=== PATIENT | male | born 1935 | race Caucasian/White ===

== ENCOUNTER 2021-01-01 22:33 | Emergency (ER) | payer MEDICARE, BC, SELFPAY ==
--- NOTE | ~2021-01-01 | XR_ITS ---
XR shoulder RT min 2V 01/01/2021 23:26 Indication: Right shoulder pain after fall Procedure: 4 views right shoulder Comparison: 02/11/2010 Findings: There is progression of moderate polyarticular osteoarthritis. Osteopenia. No acute fractur es identified. No focal soft tissue abnormality. No foreign bodies. Surrounding osseous structures an d soft tissues are unremarkable. Impression: 1: No acute fracture. Reviewed, dictated and finalized at location A. Impression: 1: No acute fracture.
--- NOTE | ~2021-01-01 | CT_ITS ---
EXAMINATION: CT cervical spine wo con DATE: 01/01/2021 23:43 INDICATION: Neck pain after fall TECHNIQUE: Computed tomography (CT) of the cervical spine was performed without intravenous contrast. The dose-length product was 380 mGy-cm. Automated exposure control and iterative reconstruction tech nique were employed. COMPARISON: None FINDINGS: There are bridging osteophytes at there is severe multilevel degenerative change. No acute fracture or traumatic malalignment. Odontoid process within normal limits. There is multilevel facet arthropathy with neural foraminal narrowing. There is moderate multilevel uncinate degenerative garrett e. Lung apices are normal. There is carotid atherosclerosis. All cervical spine levels. IMPRESSION: 1. No acute fracture. 2: Moderate-severe cervical spondylosis. Reviewed, dictated and finalized at location A.
--- NOTE | ~2021-01-01 | XR_ITS ---
XR chest 1V 01/01/2021 23:27 Indication: Status post fall. Chest pain. Procedure: AP view of the chest Comparison: No prior studies for comparison. Findings: Heart size is normal. There are multiple healed left rib fractures. No focal pneumonia, hetal ma, pleural effusion or pneumothorax. There are moderate degenerative changes of the shoulders. Impression: 1: No acute cardiopulmonary disease. Reviewed, dictated and finalized at location A. Impression: 1: No acute cardiopulmonary disease.
--- NOTE | ~2021-01-01 | CT_ITS ---
EXAMINATION: CT brain wo con DATE: 01/01/2021 23:42 INDICATION: Status post fall. Trauma to the back of the head. TECHNIQUE: Computed tomography (CT) of the head was performed without intravenous contrast. The dose- length product was 681.00 mGy-cm. Automated exposure control and iterative reconstruction technique w ere employed. COMPARISON: None FINDINGS: Generalized atrophy. There are scattered mild periventricular and subcortical white matter changes, most likely related to small vessel ischemic disease (microangiopathy). There is intracrania l atherosclerosis. No ventriculomegaly or midline shift. Basilar cisterns are patent. Paranasal sinus es and mastoids are pneumatized. No depressed skull fractures. IMPRESSION: 1. No acute intracranial abnormality. Reviewed, dictated and finalized at location A.
[2021-01-01 22:29] VITALS: BP 126/84; PULSE 78; RESP 18; TEMP 36.7; O2SAT 100
--- NOTE | 2021-01-01 22:38 | PC.NURSE ---
Attempted to call Concepción leblanc [facility] x2 for medical hx. No answer x2.
--- NOTE | 2021-01-01 22:43 | ECG_ITS ---
Measurements Intervals [place] Rate: 83 P: 15 DC: 188 QRS: 50 QRSD: 154 T: -5 QT: 434 QTc: 512 Interpretive Statements SINUS RHYTHM VENTRICULAR PREMATURE COMPLEX RIGHT BUNDLE BRANCH BLOCK EXTENSIVE ANTERIOR INFARCT, AGE INDETERMINATE BORDERLINE ST-T WAVE ABNORMALITY- INFERIOR LEADS BASELINE ARTIFACT- I, II, III, AVR, AVL, AVF, V1-V6 ABNORMAL ECG Electronically Signed On 01-04-2021 8:31:55 CDT by Ramo Estevez D.O.
--- NOTE | 2021-01-01 23:00 | ED.FALL ---
HPI - Fall General Chief Complaint: Fall Stated Complaint: fall/ hit head Time Seen by Provider: 01/01/21 22:36 Source: patient and RN notes reviewed Mode of arrival: EMS Limitations: dementia History of Present Illness HPI Narrative: This is an 85 year old male with history of dementia who presents for evaluation of a head injury. Nursing reports patient lost his balance and he fell backwards hitting his head on cabinet. He denies LOC or headache. Patient is complaining of right shoulder pain with movement. HE denies chest pain,sob, abdominal pain or neck pain. He is only oriented to self, and it is reported that it is patient's baseline. Related Data Allergies Allergy/AdvReac Type Severity Reaction Status Date / Time No Known Allergies Allergy Mild Verified 01/01/21 22:38 Review of Systems Review of Systems: All systems reviewed & are unremarkable except as noted in HPI and below PMFSH Past Medical History Medical History (Updated 01/02/21 @ 02:50 by Ivy Frye MD) Hyperlipidemia Hypertension Surgical History Surgical History (Updated 01/01/21 @ 23:04 by Ivy Frye MD) Surgical history unknown Social History Social History (Updated 01/01/21 @ 23:04 by Ivy Frye MD) Smoking status: Smoker, status unknown Exam Const: General: no acute distress and alert Eyes: EOM: EOMs intact bilaterally Neck: Neck: normal visual inspection Chest: Chest palpation & inspection: normal inspection of the chest Resp: Effort & Inspection: normal respiratory effort and no retractions Auscultation: clear to auscultation bilaterally Cardio: Rate: regular rate Rhythm: regular rhythm Heart sounds: no murmurs Skin: General skin exam: normal color Rashes: no rashes Neuro: General: moves all extremities and CN's II-XI intact bilaterally Extrem: Other: unable to abduct right arm due to pain in shoulder, bilateral equal compliance spec strength. Course Reevaluation(s) Reevaluation #1: Patient was able to ambulate without difficulty . He is at his baseline so he will be discharged back to facility Date: 01/02/21 Time: 02:45 Vital Signs Vital signs: Vital Signs Temperature 98.1 F 01/01/21 22:29 Pulse Rate 78 01/01/21 22:29 Respiratory Rate 18 01/01/21 22:29 Blood Pressure 126/84 01/01/21 22:29 Pulse Oximetry 100 01/01/21 22:29 Temperature 98.1 F 01/01/21 22:29 Pulse Rate 78 01/02/21 07:22 Respiratory Rate 14 01/02/21 07:22 Blood Pressure 122/91 H 01/02/21 07:22 Pulse Oximetry 99 01/02/21 07:22 MDM - Fall Imaging Data Attestation: I personally reviewed and interpreted this imaging study as follows: My impression: right shoulder- no fracture Chest xray- no pneumothorax Radiologist's impression: CT head Impression: No acute post traumatic intracranial abnormality, no fracture CT c spine Impression: No evidence of fracture or malalignment Multilevel severe degenerative changes. Bilateral carotid artery atherosclerosis Discharge Plan Discharge Clinical Impression: CHI (closed head injury), Contusion of right shoulder Patient Disposition: NH Fdc/Asst Living Condition: Stable Instructions: Antibiotic Form, Fall Prevention for Older Adults (ED), Head Injury (ED) Follow-up/Referrals: [place],Bobbi Hastings MD [Primary Care Provider] -
[2021-01-02 00:03] VITALS: BP 124/94; PULSE 75; RESP 18; O2SAT 94
[2021-01-02 00:28] VITALS: BP 129/65
--- NOTE | 2021-01-02 03:02 | PC.NURSE ---
0150: CALLED [facility] FOR RETURN PATIENT TRANSPORT TO FACILITY ([facility] ETA [id number]
[2021-01-02 03:33] VITALS: BP 125/65; PULSE 78; RESP 18; O2SAT 100
[2021-01-02 06:57] VITALS: BP 121/88; PULSE 78; RESP 18; O2SAT 100
[2021-01-02 07:22] VITALS: BP 122/91; PULSE 78; RESP 14; O2SAT 99
--- NOTE | 2021-01-02 07:40 | PC.NURSE ---
made contact with flynn new [facility]bar [phone]
--- NOTE | 2021-01-02 07:51 | PC.NURSE ---
rina has arrived and is aware that pt is going to [facility] [place]
[2021-01-02 08:08] VITALS: BP 121/64; PULSE 94; RESP 14; O2SAT 98
== END 2021-01-02 08:12 ==
PROVIDERS: Emergency Provider General Practice; PCP Family Medicine
DX: S09.90XA Unspecified injury of head, initial encounter (principal); S40.011A Contusion of right shoulder, initial encounter; F03.90 Unspecified dementia, unspecified severity, without behavioral disturbance, psychotic disturbance, mood disturbance, and anxiety; E78.5 Hyperlipidemia, unspecified; I10 Essential (primary) hypertension; I45.10 Unspecified right bundle-branch block; I49.3 Ventricular premature depolarization; R94.31 Abnormal electrocardiogram [ECG] [EKG]; M47.812 Spondylosis without myelopathy or radiculopathy, cervical region; W01.198A Fall on same level from slipping, tripping and stumbling with subsequent striking against other object, initial encounter
CPT/HCPCS: 70450; 71045; 72125; 73030; 93005; 99284

== ENCOUNTER 2021-01-03 23:45 | Emergency (ER) | payer MEDICARE, BC, SELFPAY ==
--- NOTE | ~2021-01-03 | CT_ITS ---
EXAMINATION: CT brain wo con INDICATION: Head injury COMPARISON: 01/01/2021 TECHNIQUE: Standard unenhanced head CT. The dose-length product (DLP) was 681.00 mGy-cm. The mA was a djusted according to patient size. Iterative reconstruction technique was employed. FINDINGS: There is no acute intraparenchymal hemorrhage. No evidence of mass lesion. No evidence of a cute infarction. There is moderate periventricular and subcortical hypodensity probably related to sm all vessel ischemic disease. There is moderate prominence of the sulci and ventricles related to cere bral atrophy. Intracranial calcified cerebral atherosclerosis is noted. There are no extra-axial irsi ections. There is no mass effect or midline shift. Changes in the globes are likely from ocular lens surgery. There is mild mucosal thickening of the paranasal sinuses. IMPRESSION: 1. No acute intracranial abnormality. 2. Age related findings. Reviewed, dictated and finalized at location A.
--- NOTE | ~2021-01-03 | XR_ITS ---
XR hip LT 2V w AP pelvis 01/04/2021 00:07 Indication: Left hip pain after fall Procedure: AP pelvis and 2 views left hip Comparison: No prior studies for comparison. 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 Extensive vascular calcifications are present. Pelvic rings are intact. No acute fracture or chip medic malalignment. No significant so ft tissue abnormality. Impression: 1: No acute fracture. Reviewed, dictated and finalized at location A. Impression: 1: No acute fracture.
[2021-01-03 23:29] VITALS: BP 125/68; PULSE 85; RESP 21; TEMP 36; O2SAT 96
[2021-01-04] VITALS (7 sets, daily range): BP systolic 112–152; BP diastolic 58–86; PULSE 81–93; RESP 15–22; O2SAT 98–100
--- NOTE | 2021-01-04 00:02 | ED.FALL ---
HPI - Fall General Chief Complaint: Fall Stated Complaint: GLF LEFT HIP PAIN Time Seen by Provider: 01/03/21 23:46 History of Present Illness HPI Narrative: 85 yo male w/ h/o dementia brought in by EMS after an unwitnessed fall. Unknown if he hit his head. he was reportedly comlaining of left hip pain. He denies any pain at this time. History limited by dementia Related Data Allergies Allergy/AdvReac Type Severity Reaction Status Date / Time No Known Allergies Allergy Mild Verified 01/01/21 22:38 Review of Systems Review of Systems: ROS unobtainable: Yes unobtainable due to mental status ENT: Denies dizziness Cardiovascular: Cardiovascular: Denies chest pain Respiratory: Respiratory: Denies dyspnea PMFSH Past Medical History Medical History Hyperlipidemia Hypertension Surgical History Surgical History Surgical history unknown Social History Social History Smoking status: Smoker, status unknown Alcohol intake: unknown Substance use: unknown Living arrangements: prison Gender identity (if verbalized by the patient): Male Exam Const: General: no acute distress and alert Nutritional Appearance: well nourished HENMT: Head: normal to inspection Resp: Effort & Inspection: normal respiratory effort Auscultation: clear to auscultation bilaterally Cardio: Rate: regular rate Rhythm: regular rhythm GI: GI Palp: Yes Soft to palpation and No Tenderness to palpation present (GI) Back/Spine/Pelvis: Cervical Spine: No Cervical spine tenderness Thoracic/Lumbar Spine: No thoracic spinal tenderness and No lumbar spinal tenderness Skin: General skin exam: normal color Neuro: General: moves all extremities and no focal motor deficits Speech: normal speech Extrem: General: normal to inspection Course Vital Signs Vital signs: Vital Signs Temperature 36.0 C L 01/03/21 23:29 Pulse Rate 85 01/03/21 23:29 Respiratory Rate 21 H 01/03/21 23:29 Blood Pressure 125/68 01/03/21 23:29 Pulse Oximetry 96 01/03/21 23:29 Temperature 36.0 C L 01/03/21 23:29 Pulse Rate 88 01/04/21 09:42 Respiratory Rate 16 01/04/21 09:42 Blood Pressure 115/77 01/04/21 09:42 Pulse Oximetry 100 01/04/21 09:42 MDM - Fall Medical Records Attestation: I reviewed the patient's medical records. Imaging Data Radiologist's impression: ITS Impressions Head CT 01/03/21 23:59 IMPRESSION: 1. No acute intracranial abnormality. 2. Age related findings. Hip/Pelvis X-Ray 01/04/21 07:13 Impression: 1: No acute fracture. Discharge Plan Discharge Clinical Impression: Fall from ground level, Musculoskeletal pain Patient Disposition: [facility] Long-Term/Asst Living Condition: Stable Instructions: Fall Prevention (ED) Additional Instructions: You may take Tylenol or ibuprofen for pain. Ice may be used for comfort. Follow-up with your PCP in 3 to 5 days as needed. Follow-up/Referrals: [place],Bobbi Hastings MD [Primary Care Provider] - Time of Disposition: 01:40
--- NOTE | 2021-01-04 01:30 | PC.NURSE ---
Updated [facility] [place] via phone. Requests updates at [phone].
--- NOTE | 2021-01-04 01:32 | ED.FALL ---
HPI - Fall General Chief Complaint: Fall Stated Complaint: GLF LEFT HIP PAIN Time Seen by Provider: 01/03/21 23:46 Source: patient Mode of arrival: EMS Limitations: dementia History of Present Illness HPI Narrative: Patient is an 85-year-old male who presents from memory care after unwitnessed fall. Patient reports left hip pain, EMS reported tender with palpation. Patient is alert and oriented x1 which is baseline per patient. No visible injuries or deformities noted. No shortening or rotation of hip. Patient resting quietly and comfortably at this time. Related Data Allergies Allergy/AdvReac Type Severity Reaction Status Date / Time No Known Allergies Allergy Mild Verified 01/01/21 22:38 Review of Systems Review of Systems: Narrative: CONSTITUTIONAL: Denies fever, chills, or sweats. EYES: Denies visual changes, redness, or discharge. ENT: Denies rhinorrhea, congestion, sore throat, or otalgia. CARDIOVASCULAR: Denies chest pain, palpitations, or edema. RESPIRATORY: Denies cough or dyspnea. GASTROINTESTINAL: Denies abdominal pain, nausea, vomiting, or diarrhea. GENITOURINARY: Denies dysuria or hematuria. SKIN: Denies rash or itching. MUSCULOSKELETAL: Denies back pain, reports left hip pain NEUROLOGIC: Denies headache, numbness, dizziness, or weakness. PSYCHIATRIC: Denies anxiety or depression. PMFSH Past Medical History Medical History Hyperlipidemia Hypertension Surgical History Surgical History Surgical history unknown Social History Social History (Updated 01/04/21 @ 01:35 by SHAHIDA Galvez) Smoking status: Smoker, status unknown Alcohol intake: unknown Substance use: unknown Living arrangements: half-way Gender identity (if verbalized by the patient): Male Comments At the time of signature, I have reviewed and agree with nursing past medical, surgical, social, and family history unless otherwise noted. Please see nursing chart for further information. There is no relevant family history pertinent to the presenting complaint. Exam Narrative: Exam Narrative: GENERAL: Well-appearing, well-nourished, and in no acute distress. HEAD: Normocephalic, atraumatic. EYES: EOMI. No redness or drainage. Conjunctiva are normal. ENT: Mucous membranes pink and moist. Nares clear. No rhinorrhea. TMs normal bilaterally. Throat normal. Uvula midline. NECK: AROM. Supple. No lymphadenopathy. CHEST: No respiratory distress. HEART: Regular rate and rhythm. GI: Soft, nontender without rebound, or guarding. No distention. Bowel sounds normal in all quadrants. MUSCULOSKELETAL: No bony tenderness. EXTREMITIES: Normal range of motion. No edema. No shortening or rotation noted in bilateral hips, no tenderness with palpation SKIN: Warm, dry, no rash. NEURO: No focal deficits. Alert and oriented x3. Gait steady. PSYCH: Normal affect. No signs of depression or anxiety. Course Vital Signs Vital signs: Vital Signs Temperature 36.0 C L 01/03/21 23:29 Pulse Rate 85 01/03/21 23:29 Respiratory Rate 21 H 01/03/21 23:29 Blood Pressure 125/68 01/03/21 23:29 Pulse Oximetry 96 01/03/21 23:29 Temperature 36.0 C L 01/03/21 23:29 Pulse Rate 90 01/04/21 01:26 Respiratory Rate 21 H 01/04/21 01:26 Blood Pressure 152/81 H 01/04/21 01:26 Pulse Oximetry 99 01/04/21 01:26 Reviewed. Patient has been instructed to follow-up with his PCP regarding his blood pressure. MDM - Fall MDM Narrative Medical decision making narrative: Patient's CT shows no acute injury. Patient's xray of pelvis and hip shows no acute fracture or dislocation. Patient is sleeping comfortably at this time, no needs verbalized. Patient is stable for discharge to home with outpatient follow up as needed. Differential Diagnosis Differential diagnosis: Likely other (Sprain, strain, contusion, fracture)
--- NOTE | 2021-01-04 01:44 | PC.NURSE ---
[facility] [place], notified of pt discharge status. Patria states pt will have to go back to memory care facility by ambulance.
--- NOTE | 2021-01-04 02:15 | PC.NURSE ---
Memory care facility called at this time, no answer. Will call again later.
--- NOTE | 2021-01-04 02:17 | PC.NURSE ---
made contact with flynn to transfer pt back to [phone]
--- NOTE | 2021-01-04 02:34 | PC.NURSE ---
Report given to Bozena varela [place] of [facility] in [place]. No questions at this time. Pt to return to facility via BLS.
--- NOTE | 2021-01-04 05:33 | PC.NURSE ---
flynn called with an updated eta [phone]
== END 2021-01-04 09:42 ==
PROVIDERS: Emergency Provider Nurse Practitioner; PCP Family Medicine
DX: M25.552 Pain in left hip (principal); E78.5 Hyperlipidemia, unspecified; I10 Essential (primary) hypertension; W18.30XA Fall on same level, unspecified, initial encounter
CPT/HCPCS: 70450; 73502; 99284

== ENCOUNTER 2021-01-18 11:34 | Observation (INO) | payer MEDICARE, BC, SELFPAY ==
[2021-01-18] VITALS (7 sets, daily range): BP systolic 106–139; BP diastolic 58–99; PULSE 75–97; RESP 18–25; TEMP 36.4–36.8; O2SAT 91–98; BMI 23.6
--- NOTE | ~2021-01-18 | XR_ITS ---
EXAMINATION: XR chest 1V portable DATE: 01/18/2021 12:11 INDICATION: Altered mental status. TECHNIQUE: A single frontal view of the chest was obtained. COMPARISON: Chest single view 01/01/2021 FINDINGS: The lung volumes are normal. There is a diffuse interstitial pattern in the lungs. No pleur al effusion or pneumothorax. The heart size is normal. There is an electronic device overlying left c hest wall. There are multiple old healed bilateral rib fractures. IMPRESSION: 1. Stable diffuse interstitial pattern in the lungs, consistent with mild pulmonary edema and/or legal advisor gal lung disease. Reviewed, dictated and finalized at location A. IMPRESSION: 1. Stable diffuse interstitial pattern in the lungs, consistent with mild pulmo nary edema and/or chronic lung disease.
--- NOTE | ~2021-01-18 | CT_ITS ---
EXAMINATION: CT brain wo con INDICATION: Altered mental status and weakness COMPARISON: None TECHNIQUE: Standard unenhanced head CT. The dose-length product (DLP) was 681.00 mGy-cm. The mA was a djusted according to patient size. Iterative reconstruction technique was employed. FINDINGS: There is no acute intraparenchymal hemorrhage. No evidence of mass lesion. No evidence of a cute infarction. There is mild periventricular and subcortical hypodensity probably related to small vessel ischemic disease. There is mild prominence of the sulci and ventricles related to cerebral atr ophy. Intracranial calcified cerebral atherosclerosis is noted. There are no extra-axial collections. There is no mass effect or midline shift. Changes in the globes are likely from ocular lens surgery. The visualized sinuses and mastoid air cells are well aerated. IMPRESSION: 1. No acute intracranial abnormality. 2. Age related findings. Reviewed, dictated and finalized at location B.
--- NOTE | 2021-01-18 11:45 | ECG_ITS ---
Measurements Intervals [place] Rate: 83 P: 58 [place]: 183 QRS: 21 QRSD: 142 T: -2 QT: 433 QTc: 510 Interpretive Statements SINUS RHYTHM POSSIBLE LEFT ATRIAL ENLARGEMENT RIGHT BUNDLE BRANCH BLOCK ANTEROLATERAL INFARCT, AGE INDETERMINATE INFERIOR INFARCT, AGE INDETERMINATE BASELINE ARTIFACT- I, II, III, AVR, AVL, AVF, V1-V6 ABNORMAL ECG Electronically Signed On 01-18-2021 15:31:59 CDT by Ramo Estevez D.O.
--- NOTE | 2021-01-18 11:45 | ED.WEAKNESS ---
HPI - Weakness General Chief complaint: Weakness Stated complaint: WEAKNESS Time Seen by Provider: 01/18/21 11:37 Source: RN notes reviewed History of Present Illness HPI Narrative: Patient presents to emergency department from [facility] for altered mental status. History is per staff at the facility and EMS as patient is unable to give history patient with a history of Alzheimer's dementia and is ANO x1 at baseline over the past 2 weeks he has had progressive decline with being less alert and not eating and drinking. Patient currently lays in bed with eyes closed does not follow any commands he was able to say random words Related Data Allergies Allergy/AdvReac Type Severity Reaction Status Date / Time No Known Allergies Allergy Mild Verified 01/01/21 22:38 Review of Systems Review of Systems: ROS unobtainable: Yes unobtainable due to mental status PMFSH Past Medical History Medical History Dementia Hyperlipidemia Hypertension Surgical History Surgical History Surgical history unknown Social History Social History Smoking status: Smoker, status unknown Alcohol intake: unknown Substance use: unknown Gender identity (if verbalized by the patient): Male Exam Narrative: APPEARANCE: Laying in bed with eyes closed forcibly shutting eyes with sternal rub will say ouch and grabbed my hand EYES: PERRL HEENT: Normocephalic, atraumatic, oral mucosa dry RESPIRATORY: No respiratory distress Clear to auscultation bilaterally with no rhonchi wheezing or rales. CARDIOVASCULAR: Regular rate and rhythm without murmurs rubs or gallops. ABDOMINAL: Soft, nontender, nondistended, no rebound or guarding MUSCULOSKELETAl: Moves all extremities. No clubbing, cyanosis or edema. NEURO: Laying in bed with eyes closed forcibly trying to close eyes does not answer any questions or follow commands SKIN:: Warm, dry. No rashes lesions or abrasions Course Course Emergency Course: Called discussed with patient's daughter Patria who is power of immigration attorney discussed the patient's progressive decline at this time she is in agreement with the patient having a hospice consult discussed with patient return to the facility Called and discussed with Dr. Zambrano presentation work-up agrees with plan for hospice Discussed with case management who came to evaluate the patient discussed with the daughter the also discussed with the patient's current ECF they are unable to care for the patient this time as he is requiring a higher level of need at this time unable to place patient in a different assisted this evening and will admit to the hospital service Discussed with IRIS Landin for Dr Villa presentation work-up agrees with admission at this time Vital Signs Vital signs: Vital Signs Temperature 98.3 F 01/18/21 11:39 Pulse Rate 81 01/18/21 11:39 Respiratory Rate 22 H 01/18/21 11:39 Blood Pressure 125/65 01/18/21 11:39 Pulse Oximetry 92 01/18/21 11:39 Temperature 98.3 F 01/18/21 11:39 Pulse Rate 92 01/18/21 14:52 Respiratory Rate 25 H 01/18/21 14:52 Blood Pressure 130/99 H 01/18/21 14:52 Pulse Oximetry 98 01/18/21 14:52 MDM - Weakness Lab Data Result diagrams: 01/18/21 11:52 01/18/21 11:52 Labs: Lab Results 01/18/21 01/18/21 01/18/21 Range/Units 11:52 11:52 11:52 WBC 8.8 (4.5-10.0) K/mm3 RBC 4.65 (4.6-6.20) M/mm3 Hgb 14.8 (14.0-18.0) g/dL Hct 43.2 (42.0-52.0) % MCV 92.9 (80-100) fl MCH 31.8 (26-34) pg MCHC 34.3 (32-36) g/dl RDW 13.9 (11.5-14.5) % Plt Count 259 (150-375) k/mm3 MPV 10.1 (7.4-10.4) fl Immature Gran % (Auto) 0.2 (0-0.5) % Neut % (Auto) 65.2 (45.5-73.1) % Lymph % (Auto) 24.6 (18.3-44.2) % [place] % (Auto) 7.1 (2.6-8.5) % Eos % (Au
[2021-01-18] MEDS: SODIUM CHLORIDE 0.9% IV 1,000 ML 999 ML IV CONT (12:11)
[2021-01-18 12:19] LABS: Basophils Absolute Auto 0.1 K/mm3 (0.0-0.1); Basophils Percent Auto 0.7 % (0.2-1.2); Eosinophils Absolute Auto 0.2 K/mm3 (0-0.3); Eosinophils Percent Auto 2.2 % (0-4.4); Hematocrit 43.2 % (42.0-52.0); Hemoglobin 14.8 g/dL (14.0-18.0); Immature Granulocyte Absolute 0.02 K/mm3 (0.00-0.031); Immature Granulocyte Percent A 0.2 % (0-0.5); Lymphocytes Absolute Auto 2.16 K/mm3 (0.9-3.2); Lymphocytes Percent Auto 24.6 % (18.3-44.2); Mean Corpuscular HGB Conc 34.3 g/dl (32-36); Mean Corpuscular Hemoglobin 31.8 pg (26-34); Mean Corpuscular Volume 92.9 fl (80-100); Mean Platelet Volume 10.1 fl (7.4-10.4); Monocytes Absolute Auto 0.6 K/mm3 (0.1-0.6); Monocytes Percent Auto 7.1 % (2.6-8.5); Neutrophils Absolute Auto 5.7 K/mm3 (1.3-6.7); Neutrophils Percent Auto 65.2 % (45.5-73.1); Platelet Count Result 259 k/mm3 (150-375); Red Blood Count 4.65 M/mm3 (4.6-6.20); Red Cell Distribution Width 13.9 % (11.5-14.5); White Blood Count 8.8 K/mm3 (4.5-10.0)
[2021-01-18 12:30] LABS: Add Urine Microscopic? YES; Appearance Urine Cloudy (Clear); Bilirubin Urine Negative (Negative); Color Urine Amber (Yellow); Glucose Urine UA Negative (Negative); Hyaline Casts Urine 30-49 /lpf; Ketones Urine Negative (Negative); Leukocyte Esterase Ur Negative LEU/UL (Negative); Mucus Urine Heavy /lpf; Nitrate Urine Negative (Negative); Protein Urine 2+ mg/dL (Negative); RBC Urine 21-50 /hpf (0-2); Specific Grav Ur 1.029 (1.001-1.035); WBC Urine 31-50 /hpf
[2021-01-18 12:32] LABS: Blood Urine Negative (Negative)
[2021-01-18 12:34] LABS: INR 1.1; Prothrombin Time 14.1 Seconds (11.1-14.7)
[2021-01-18 12:35] LABS: Partial Thromboplastin Time 37.9 SECONDS (22.3-36.8)
[2021-01-18 12:38] LABS: Alanine Aminotransferase 25 U/L (4-50); Albumin Level 4.3 g/dL (3.5-5.1); Alkaline Phosphatase 182 U/L (38-126); Anion Gap 11 mmol/L (8-16); Aspartate Amino Transferase 35 U/L (17-59); Bilirubin,Total 1.5 mg/dL (0.2-1.3); Blood Urea Nitrogen 15 mg/dL (9-20); Calcium 9.6 mg/dL (8.4-10.2); Carbon Dioxide 24 mmol/L (22-30); Chloride 102 mmol/L (98-107); Estimated CRCL calculation 87 ml/min; Estimated Glomerular Filt Rate > 60; Glucose 128 mg/dL (65-110); Potassium 3.9 mmol/L (3.4-5.0); Sodium 137 mmol/L (137-145)
--- NOTE | 2021-01-18 15:18 | PCCCNOTE ---
Hospice referral order per Dr. Muñoz. I spoke with daughter and all in agreement that Hospice is needed. [facility] contacted and referral made and information sent. Daughter is currently in [place] and is flying up [facility]. Pt currently lives at [facility]. The memory care facility states that they are not set up for heavy care needs of patient.
--- NOTE | 2021-01-18 17:38 | PCCCNOTE ---
[facility] to meet with daughter (Patria) at 1100 AM Thur to sign papers and go over plan of care.
--- NOTE | 2021-01-18 18:08 | ADMGEN ---
This patient, Nirmal Ayoub, was admitted to Medical Room 340-01. Patient/family oriented to hospital policies and general routines including ID bracelet, bed and alarms, visiting hours, pain management, procedures, bathroom and other care routines, personal items, smoking policy, room service/diet, and visiting hours. Information on how to activate the Rapid Response Team has been discussed. Patient/Family are encouraged to report perceived risks to care and to ask questions if they do not understand what they are told or what they should do.
--- NOTE | 2021-01-18 18:34 | PC.NURSE ---
Attempted to call [facility] to obtain patients medication list twice, [phone]. Left voicemails for staff to fax medication list.
--- NOTE | 2021-01-18 23:00 | PM.IMHP ---
H&P: HPI History of Present Illness Date/Time: 01/18/21 23:00 Chief Complaint: Weakness and weight loss. Narrative: This is an 85-year-old male with dementia who presented to the emergency department earlier today via EMS from the [facility] for evaluation of weakness and weight loss. He is not able to provide me with any meaningful history given his severe dementia and current clinical condition. As such a majority of the following is obtained via a review of his electronic medical records. I was told that his daughter was traveling up here from out of town and was unable to get a hold of her. According to the triage note he been refusing his meals and eating very little over in the past couple of weeks. It is my understanding that he has gotten progressively less interactive and weak as well. There were no significant findings noted on labs or imaging done on arrival to the emergency department. At the time of my evaluation he is lying in bed with his eyes closed and he would not open his eyes. He could not answer my questions but on occasion would monitor a few words that I could not understand. He did not allow me to fully examine him as it caused agitation. Calls to the [facility] have been on answered as of yet. Review of Systems Review of Systems: Unable to obtain given current clinical condition. [facility] Past Medical History Medical History (Updated 01/18/21 @ 21:18 by Urvashi Omer PA-C) Benign prostatic hyperplasia Dementia Diet-controlled diabetes mellitus Gastroesophageal reflux disease Hyperlipidemia Hypertension Macular degeneration Surgical History Surgical History Surgical history unknown Family History Family History (Updated 01/19/21 @ 00:45 by Urvashi Omer PA-C) Other Family history unknown Social History Social History (Updated 01/19/21 @ 00:47 by Urvashi Omer PA-C) Social History: The patient lives at the [facility]. Patient is unable to tell me if he has a history of alcohol or tobacco use. A Patria Montez is listed on his paperwork though it does not state how she is related to the patient if at all. Meds Home Medications and Allergies Home Medications Medication Instructions Recorded Confirmed Type dronabinol 2.5 mg PO BID 01/18/21 01/18/21 History Allergies Allergy/AdvReac Type Severity Reaction Status Date / Time No Known Allergies Allergy Mild Verified 01/18/21 18:32 Vital Signs Vital Signs - 24 hr 01/18/21 11:39 01/18/21 11:42 01/18/21 13:21 Temperature 98.3 F Pulse Rate 81 78 95 Respiratory Rate 22 H 18 Blood Pressure 125/65 121/58 L Pulse Oximetry 92 98 01/18/21 14:52 01/18/21 17:19 01/18/21 18:28 Temperature 97.6 F Pulse Rate 92 75 79 Respiratory Rate 25 H 25 H 18 Blood Pressure 130/99 H 106/71 117/98 H Pulse Oximetry 98 97 91 Exam Narrative: General: Frail elderly male supine in bed. Weight: 79 kg. BMI: 23.6. HEENT: He kept his eyes closed and would not open them. Conjunctiva mildly injected. Lips and oral mucosa appear very dry. He did not open his mouth for further exam. Neck: Supple. No obvious adenopathy or JVD. Respiratory: Lung sounds are diminished anteriorly and at the flanks due to poor effort. Respirations are mildly tachypneic though he appears in no distress. Cardiovascular: Regular rate and rhythm with S1-S2. Gastrointestinal: Abdomen is soft, flat, nontender and nondistended with positive bowel sounds. Skin: Warm and dry. Some excoriations on the rowe. Extremities: No cyanosis, clubbing, or edema. Radial and pedal pulses intact. Neurological: Patient does acknowledge my presence and mother's a few indistinct words. Unable to assess orientation as he does not answer questions. He is noted to move upper and lower extremities. No obvious facial asymmetry. He did not participate in the rest of the neurologic exam. Psych
[2021-01-19 06:00] VITALS: BP 125/91; PULSE 105; RESP 22; TEMP 36.5; O2SAT 95
[2021-01-19 09:29] LABS: Lactic Acid Reflex 2.3 mmol/L (0.7-2.1)
[2021-01-19 10:03] LABS: Erythrocyte Sedimentation Rate 81 mm/hr (0-20)
[2021-01-19 10:58] LABS: CRP 3.5 mg/dL (<1.0)
[2021-01-19 11:15] VITALS: BMI 23.6
[2021-01-19 12:01] LABS: Folic Acid 4.6 ng/mL (2.76->20)
[2021-01-19 12:15] LABS: Reflex Lactic Acid Yes or No Add Lactic
[2021-01-19 12:23] LABS: Free T4 Free Thyroxine Reflex 2.31 ng/dL (0.78-2.19)
--- NOTE | 2021-01-19 12:39 | PC.NURSE ---
Dr Mila Crow notified of pt refusing any oral intake this am
[2021-01-19] MEDS: SODIUM CHLORIDE 0.9% IV 1,000 ML 75 ML IV CONT (13:19)
[2021-01-19 14:00] VITALS: BP 117/39; PULSE 70; RESP 22; TEMP 36.1; O2SAT 92
--- NOTE | 2021-01-19 19:46 | PM.IMPN ---
Progress Note: A&P Assessment and Plan (1) Weakness: Code(s): R53.1 - Weakness Status: Acute (2) Failure to thrive: Status: Acute (3) Dementia: Code(s): F03.90 - Unspecified dementia without behavioral disturbance Status: Acute (4) Abnormal urinalysis: Code(s): R82.90 - Unspecified abnormal findings in urine Status: Acute Additional Plan Hospice transition in AM continue IV fluids for dehydration in the interim No labs Time Spent With Patient Time with patient: 15 - 25 minutes Subjective Date/time seen: 01/19/21 19:46 Patient presented with FTT. Daughter has elected to continue with Hospice care. patient to be transferred to hospice tomorrow Review of Systems Review of Systems: 10 point review of systems conducted was extremities 10 review of systems conducted was negative Exam Narrative: General: Frail elderly male supine in bed. Weight: 79 kg. BMI: 23.6. HEENT: He kept his eyes closed and would not open them. Conjunctiva mildly injected. Lips and oral mucosa appear very dry. He did not open his mouth for further exam. Neck: Supple. No obvious adenopathy or JVD. Respiratory: Lung sounds are diminished anteriorly and at the flanks due to poor effort. Respirations are mildly tachypneic though he appears in no distress. Cardiovascular: Regular rate and rhythm with S1-S2. Gastrointestinal: Abdomen is soft, flat, nontender and nondistended with positive bowel sounds. Skin: Warm and dry. Some excoriations on the rowe. Extremities: No cyanosis, clubbing, or edema. Radial and pedal pulses intact. Neurological: Patient does acknowledge my presence and mother's a few indistinct words. Unable to assess orientation as he does not answer questions. He is noted to move upper and lower extremities. No obvious facial asymmetry. He did not participate in the rest of the neurologic exam. Psychiatric: Confused. Objective Data Vital Signs Vital Signs: Vital Signs - 24 hr 01/18/21 21:43 01/19/21 06:00 01/19/21 14:00 Temperature 97.9 F 97.7 F 96.9 F L Pulse Rate 97 105 H 70 Respiratory Rate 20 22 H 22 H Blood Pressure 139/94 H 125/91 H 117/39 L Pulse Oximetry 96 95 92 Intake/Output Intake/Output: Intake & Output 01/16/21 01/17/21 01/18/21 01/19/21 23:59 23:59 23:59 23:59 Intake Total 1000 530 Output Total 200 Balance 800 530 Meds/Results Medications: Active Medications Generic Name Dose Route Start Last Admin Trade Name Loretta PRN Reason Stop Dose Admin Dronabinol 2.5 mg 01/19/21 09:00 01/19/21 16:16 Dronabinol (*Crx) 2.5 Mg Capsule PO 2.5 mg BID GEOFF Administration Sodium Chloride 1,000 mls @ 75 mls/hr 01/19/21 12:40 01/19/21 13:19 Normal Saline Iv IV CONT 75 mls/hr .[id number] GEOFF Administration Radiology Results: ITS Impressions Chest X-Ray 01/18/21 12:11 IMPRESSION: 1. Stable diffuse interstitial pattern in the lungs, consistent with mild pulmonary edema and/or chronic lung disease. Head CT 01/18/21 12:20 IMPRESSION: 1. No acute intracranial abnormality. 2. Age related findings. Labs Labs: Laboratory Results - last 24 hr 01/19/21 01/19/21 01/19/21 09:07 09:07 09:07 ESR 81 H Lactic Acid 2.3 H C-Reactive Protein 3.5 H Vitamin B12 586.0 Folate 4.6 TSH (Reflex) Free T4 01/19/21 01/19/21 09:07 09:07 ESR Lactic Acid C-Reactive Protein Vitamin B12 Folate TSH (Reflex) 4.150 Free T4 2.31 H Quality VTE Prophylaxis VTE prophylaxis: mechanical ordered
[2021-01-19 20:03] VITALS: BP 127/64; PULSE 84; RESP 20; TEMP 35.9; O2SAT 100
[2021-01-20] MEDS: SODIUM CHLORIDE 0.9% IV 1,000 ML 75 ML IV CONT (05:01)
[2021-01-20 06:00] VITALS: BP 143/77; PULSE 80; RESP 18; TEMP 36.7; O2SAT 100
--- NOTE | 2021-01-20 17:24 | PM.DS ---
DS: Admitting Diagnosis Admitting Diagnosis Failure to thrive DS: Discharge Diagnosis Discharge Diagnosis (1) Abnormal urinalysis: Code(s): R82.90 - Unspecified abnormal findings in urine Status: Acute (2) Failure to thrive: Qualifiers: Failure to thrive age range: in adult Qualified Code(s): R62.7 - Adult failure to thrive Status: Acute (3) Weakness: Code(s): R53.1 - Weakness Status: Acute (4) Dementia: Qualifiers: Dementia type: unspecified type Dementia behavioral disturbance: without behavioral disturbance Qualified Code(s): F03.90 - Unspecified dementia without behavioral disturbance Code(s): F03.90 - Unspecified dementia without behavioral disturbance Status: Acute DS: Summary Hospital Course Reason for hospitalization: Failure to thrive Hospital Course: 85-year-old male with past medical history significant for dementia presented with concerns for weakness and weight loss. She was very confused on arrival was unable to provide any history. The daughter was contacted and it was decided mutually that the patient would do better with comfort care. Hospice was contacted and the patient was thus transferred to hospice. Status at Discharge Functional status at discharge: bed bound Time Spent with Patient Time attestation: Total time spent providing and/or coordinating discharge services: Exam Narrative: General: Frail elderly male supine in bed. Weight: 79 kg. BMI: 23.6. HEENT: He kept his eyes closed and would not open them. Conjunctiva mildly injected. Lips and oral mucosa appear very dry. He did not open his mouth for further exam. Neck: Supple. No obvious adenopathy or JVD. Respiratory: Lung sounds are diminished anteriorly and at the flanks due to poor effort. Respirations are mildly tachypneic though he appears in no distress. Cardiovascular: Regular rate and rhythm with S1-S2. Gastrointestinal: Abdomen is soft, flat, nontender and nondistended with positive bowel sounds. Skin: Warm and dry. Some excoriations on the rowe. Extremities: No cyanosis, clubbing, or edema. Radial and pedal pulses intact. Neurological: Patient does acknowledge my presence and mother's a few indistinct words. Unable to assess orientation as he does not answer questions. He is noted to move upper and lower extremities. No obvious facial asymmetry. He did not participate in the rest of the neurologic exam. Psychiatric: Confused. DS: Data Data Completed and Pending Labs on day of discharge: Preliminary micro results at discharge 01/19/21 11:29 Blood Culture - Preliminary Blood 01/19/21 09:06 Blood Culture - Preliminary Blood Discharge Plan Discharge Attending physician on discharge: Mila Crow Discharging Clinician: Mila Crow Patient Disposition: Hospice - Home Activity: as tolerated Diet: as tolerated Stand Alone Forms: General Discharge Information Follow-up/Referrals: Richard,Bobbi Hastings MD [Primary Care Provider] - Discharge Medications: Continued dronabinol 2.5 mg Capsule 2.5 mg PO BID RF: 0 Date of admission: 01/18/21 14:59 Primary Care Provider: KenyaBobbi Admitting Provider: Alexey Villa Attending physician on admission: Alexey Villa Condition: Stable Quality VTE Prophylaxis VTE prophylaxis: mechanical ordered
== END 2021-01-20 14:17 | disposition hospice, home (50) ==
LOC: ANHED 16:00 → ANH3MED 01-20 08:47
PROVIDERS: Admitting Provider Internal Medicine; Emergency Provider Emergency Medicine; PCP Family Medicine; Visit Provider Internal Medicine
DX: R82.90 Unspecified abnormal findings in urine (principal); R62.7 Adult failure to thrive; R53.1 Weakness; G30.9 Alzheimer's disease, unspecified; F02.80 Dementia in other diseases classified elsewhere, unspecified severity, without behavioral disturbance, psychotic disturbance, mood disturbance, and anxiety; I10 Essential (primary) hypertension; E78.5 Hyperlipidemia, unspecified; R63.4 Abnormal weight loss; Z68.23 Body mass index [BMI] 23.0-23.9, adult; K21.9 Gastro-esophageal reflux disease without esophagitis; H35.30 Unspecified macular degeneration
CPT/HCPCS: 36415; 51701; 70450; 71045; 80053; 81001; 82607; 82746; 83605; 84145; 84439; 84443; 85025; 85610; 85652; 85730; 86140; 87040; 87086; 93005; 96360; 96361; 99285; A9270; G0378; J7030